=== PATIENT | male | born 1955 ===

== ENCOUNTER → 2020-10-30 08:56 | Outpatient (CLI) | payer MEDICARE, BC, SELFPAY ==
--- NOTE | ~2020-10-30 | XR_ITS ---
EXAMINATION: XR hip LT 2V w AP pelvis INDICATION: Left hip pain TECHNIQUE: AP view the pelvis and two views of each hip are obtained. COMPARISON: 02/17/2010 FINDINGS: Bone alignment is normal. There is no fracture. There is mild osteoarthritis. The soft tiss ues are unremarkable. Mild to moderate lumbar spondylosis is noted. IMPRESSION: 1. Mild osteoarthritis. Reviewed, dictated and finalized at location B. IMPRESSION: 1. Mild osteoarthritis.
--- NOTE | ~2020-10-30 | XR_ITS ---
EXAMINATION: XR ankle LT min 3V, XR foot LT min 3V DATE: 10/30/2020 09:56 INDICATION: Left foot and ankle pain. TECHNIQUE: 1. Anteroposterior, mortise, additional oblique and lateral view of the left ankle were obtained. 2. Dorsoplantar, two oblique and lateral views of the left foot were obtained. COMPARISON: None. FINDINGS: Alignment of the foot and ankle is normal. No fracture or osteochondral lesion. Mild osteoarthritis a t the left ankle, first metatarsophalangeal and a few interphalangeal joints. Subarticular cystic alma nges seen at the central head of the first metatarsal. Mild hypertrophic change along the anterior ma rgin of the tibial plafond. No ankle joint effusion. Small plantar calcaneal spur. Mild soft tissue s welling about the left ankle and over the dorsum of the midfoot. IMPRESSION: 1. Mild polyarticular osteoarthritis at the left ankle, first metatarsophalangeal and a few interphal angeal joints. No acute osseous abnormality. Reviewed, dictated and finalized at location A. IMPRESSION: 1. Mild polyarticular osteoarthritis at the left ankle, first metatarsophalange al and a few interphalangeal joints. No acute osseous abnormality.
== END ==
PROVIDERS: Visit Provider Nurse Practitioner Adult Health
DX: M25.552 Pain in left hip (principal); M79.673 Pain in unspecified foot; M25.572 Pain in left ankle and joints of left foot; M16.12 Unilateral primary osteoarthritis, left hip; M19.072 Primary osteoarthritis, left ankle and foot
CPT/HCPCS: 73502; 73610; 73630

== ENCOUNTER 2022-03-03 09:37 | Outpatient (CLI) | payer MEDICARE, SELFPAY ==
--- NOTE | ~2022-03-03 | XR_ITS ---
EXAMINATION: XR hip BI wo pelvis DATE: 03/03/2022 10:30 INDICATION: Bilateral hip pain. TECHNIQUE: 2 views of right hip and 2 views of left hip were obtained. COMPARISON: Pelvis and hip radiographs 10/30/2020 FINDINGS: Bone alignment is normal. No fracture. There is mild osteoarthritis of the hips. Osteitis p ubis is noted. IMPRESSION: 1. Mild osteoarthritis of the hips. Reviewed, dictated and finalized at location A.
== END 2022-03-03 09:38 | disposition home or self-care (01) ==
PROVIDERS: Visit Provider Physical Medicine & Rehabilitation
DX: M16.11 Unilateral primary osteoarthritis, right hip (principal)
CPT/HCPCS: 73521

== ENCOUNTER 2025-03-26 09:17 | Emergency (ER) | payer MEDICARE, SELFPAY ==
--- OUTSIDE RECORDS SUMMARY | 2024-11-28 07:30 | XMS_ITS ---
Author Organization [facility] Address [address] [place] [address] Care Team Providers Care Pick Remover Name Role Phone Nathaniel Chapman Unavailable [phone] Favio Baker [phone] REASON FOR VISIT inflammation in right foot Encounters Encounter Location Date Provider Diagnosis [facility]-[address] [address] 11/28/2024 Favio Baker Plan Of Treatment No Information Progress Notes * Santos RAHMAN MDOB:[birth year] (70 yo M)Acc No.[id number]:11/28/2024 Progress Notes Patient: Ester ROMERO Santos Hernandez Provider: ABDIFATAH Robertson :1955 A ge:69 Y S ex:Male Date:11/28/2024 Address:[address] [place], [place] [id number] Subjective: * Chief Complaints: * 1 . Inflammation in right foot. * Medical History: Objective: * Vitals: Assessment: Plan: * Treatment: * * Electronic signature of ABDIFATAH Workman on 03/26/2025 at 10:15 AM CONFERENCE SERVICES MANAGER Sign off status: Pending * Provider: ABDIFATAH Robertson Date: 0 11/28/2024 Generated for Mercedez to/Ivan/eTransmitting on: 05/26/2024 10:15 AM CONFERENCE SERVICES MANAGER
--- OUTSIDE RECORDS SUMMARY | 2024-12-05 06:45 | XMS_ITS ---
Author Organization [facility] Address [address] [place] [address] Care Team Providers Care Bezel Cutter Name Role Phone AriMj carrilloden Unavailable [phone] Favio Baker Unavailable [phone] REASON FOR VISIT inflammation in right foot Encounters Encounter Location Date Provider Diagnosis [facility]-[address] [address] 12/05/2024 Favio Baker Assessments Encounter Date Diagnosis (ICD Code) Assessment Notes Treatment Notes Treatment Clinical Notes Section Notes 12/05/2024 Other Notes: Significant time was spent due to complex decision-making as a result of the patient's complicated pain issues. The plan is as follows: Patient will continue exercise therapy regimen. Assessment is unchanged from 04/13/23 except as denoted below. Plan Of Treatment Treatment Notes Assessment Notes Other Notes: Significant time was spent due to complex decision-making as a result of the patient's complicated pain issues. The plan is as follows: Patient will continue exercise therapy regimen. Progress Notes * Santos FREY MDOB:[birth year] (70 yo M)Acc No.[id number]:12/05/2024 Progress Notes Patient: Santos STILL Provider: ABDIFATAH Robertson :1955 A ge:69 Y S ex:Male Date:12/05/2024 Address:[address] [place] [address] [facility] Subjective: * Chief Complaints: * 1 . Inflammation in right foot. * HPI: C omplaints: On a scale of 1-10 how would you rate your pain today? Patient reports pain rated at a level Where is your pain today and how long has the pain been present? Patient reports pain located How would you describe your pain, is it aching, stabbing, dull, sharp or burning? Patient reports Is there anything that you do that makes the pain better? Patient reports the pain decreases with Is there anything that you do that makes the pain worse? Patient reports the pain increases with What daily activities does your pain make more difficult? Patient reports How many hours of sleep a night would you say you're getting? Patient reports obtaining hours of sleep per night. Is the pain causing you to wake up at night, if so how often? Patient reports What medications are you currently taking to manage the pain and how long have you been taking these medications? Patient reports taking Have you had any injections recently and if you have, how much relief have you gotten from those? Patient reports Have you had any recent falls? Patient reports The pain disability index score at today's visit is: ____. * Medical History: Objective: * Vitals: * Examination: G eneral Examination: P hysical exam is unchanged from 04/13/23 except as denoted below. GENERAL APPEARANCE: well developed, well nourished, alert, and cooperative; in no apparent distress HEAD: normocephalic, atraumatic EYES: sclera non-icteric, extra ocular eye movements intact CHEST: respiratory rate normal, no signs of respiratory distress SKIN: no suspicious lesions, no rashes, no edema NEURO: Normal speech; walking unassisted without a cane or a walker. Assessment: * Assessment: Assessment is unchanged from 04/13/23 except as denoted below. Plan: * Treatment: * * Electronic signature of ABDIFATAH Workman on 03/26/2025 at 10:15 AM LEGAL RECEPTIONIST Sign off status: Pending * Provider: ABDIFATAH Robertson Date: 0 12/05/2024 Generated for Mercedez to/Ivan/Mónica on: 05/26/2024 10:15 AM LEGAL RECEPTIONIST History and Physical Notes * Examination Category Sub-Category Detail Notes Category Not es General Examination Physical exam is unchanged from 04/13/23 except as denoted below. GENERAL APPEARANCE: well developed, well nourished, alert, and cooperative; in no apparent distress HEAD: normocephalic, atraumatic EYES: sclera non-icteric, extra ocular eye movements intact CHEST: respiratory rate normal, no signs of respiratory distress SKIN: no suspicious lesions, no rashes, no edema NEURO: Normal speech; walking unassisted without a cane or a walker
--- OUTSIDE RECORDS SUMMARY | 2024-12-21 02:15 | XMS_ITS ---
Author Organization [facility] Address [address] [place] [address] Care Team Providers Care Software Trainer Name Role Phone AriNathaniel carrillo Unavailable [phone] Favio Baker Unavailable [phone] REASON FOR VISIT inflammation in right foot Medications Medication SIG (Take, Route, Frequency, Duration) Notes Start Date End Date Status Medrol 4 MG as directed Orally 6 tabs day 1, 5 tabs day 2, 4 tabs day 3, 3 tabs day 4, 2 tabs day 5, 1 tab day 6 for 6 days 12/21/2024 Active traMADol HCl 50 MG 1 tablet as needed O rally three times a day (tid) as needed (prn) for 10 days 04/13/2023 Active Cyclobenzaprine HCl 10 MG 1 tablet at be dtime as needed Orally Once a day for 30 day(s) Active Encounters Encounter Location Date Provider Diagnosis [facility]-[address] [address] 12/21/2024 Favio Baker Foot pain, right M79.671 and Plantar fascial fibromatosis M72.2 Assessments Encounter Date Diagnosis (ICD Code) Assessment Notes Treatment Notes Treatment Clinical Notes Section Notes 12/21/2024 Foot pain, right (ICD-10 - M79.671) Assessment is unchanged from 04/13/23 except as denoted below. 12/21/2024 Plantar fascial fibromatosis (ICD-10 - M72.2) Assessment is unchanged from 04/13/23 except as denoted below. 12/21/2024 Other Notes: Significant time was spent due to complex decision-making as a result of the patient's complicated pain issues. The plan is as follows: Patient will continue exercise therapy regimen. There is strong suspicion for plantar fasciitis as the cause of the pt's symptoms. Reviewed with the pt conservative measures to treat PF (calf stretches, rolling foot over a hard ball, wearing proper fitting shoes, etc.) Recommended a foot xray to pt to assess for acute bony pathology, but pt declines. Will prescribe a Medrol Dose Pack for the patient's acute pain and inflammation. Discussed potential medication side effects/risks with the patient. Advised patient to not take any NSAIDs while taking Medrol Dose Pack. The patient expresses understanding. The patient denies a history of kidney or liver disease. Will refer pt to [facility] for further evaluation. Pt elects to FU PRN at this time. We will not add or change any other medications at this time as the patient is currently tolerating all medications with no significant side effects. Advised pt to contact clinic if they develop any new/worsening symptoms or pain The total encounter time for today's visit was 30 minutes which was spent on preparation for the visit, e.g. chart review, and in the activities documented in this note. Please refer back to the HPI and physical exam sections of this note for further details regarding this encounter. Assessment is unchanged from 04/13/23 except as denoted below. Plan Of Treatment Medication Medication Name Sig Start Date Stop Date Notes Medrol 4 MG as directed Orally 6 tabs day 1, 5 tabs day 2, 4 tabs day 3, 3 tabs day 4, 2 tabs day 5, 1 tab day 6 for 6 days 12/21/2024 Treatment Notes Assessment Notes Other Notes: Significant time was spent due to complex decision-making as a result of the patient's complicated pain issues. The plan is as follows: Patient will continue exercise therapy regimen. There is strong suspicion for plantar fasciitis as the cause of the pt's symptoms. Reviewed with the pt conservative measures to treat PF (calf stretches, rolling foot over a hard ball, wearing proper fitting shoes, etc.) Recommended a foot xray to pt to assess for acute bony pathology, but pt declines. Will prescribe a Medrol Dose Pack for the patient's acute pain and inflammation. Discussed potential medication side effects/risks with the patient. Advised patient to not take any NSAIDs while taking Medrol Dose Pack. The patient expresses understanding. The patient denies a history of kidney or liver disease. Will refer pt to [facility] for further evaluation. Pt elects to FU PRN at this time. We will not add or change any other medications at this time as the patient is currently tolerating all medications with no significant side effects. Advised pt to contact clinic if they develop any new/worsening symptoms or pain The total encounter time for today's visit was 30 minutes which was spent on preparation for the visit, e.g. chart review, and in the activities documented in this note. Please refer back to the HPI and physical exam sections of this note for further details regarding this encounter. Progress Notes * Santos FREY MDOB:[birth year] (70 yo M)Acc No.[id number]:12/21/2024 Progress Notes Patient: Santos STILL Provider: ABDIFATAH Robertson :1955 A ge:69 Y S ex:Male Date:12/21/2024 Address:[address] [place], [place] [id number] Subjective: * Chief Complaints: * 1 . Inflammation in right foot. * HPI: C omplaints: On a scale of 1-10 how would you rate your pain today? Patient reports pain rated at a level of 4 with shoes on, barefoot is a 10 Where is your pain today and how long has the pain been present? Patient reports pain located in right foot, ball of foot and in fascia/arch; pain flared up about 1 month ago; pt notes the pain was first noticed upon waking up 1 day; The pt denies any recent trauma/injury or skin changes pt notes this pain has been intermittent for years from a prior injury to his foot; pt states he recently had to wear old shoes as his current shoes were too worn down; pt recently just bought a new pair of shoes How would you describe your pain, is it aching, stabbing, dull, sharp or burning? Patient reports pain is sharp Is there anything that you do that makes the pain better? Patient reports the pain decreases with applying ice Is there anything that you do that makes the pain worse? Patient reports the pain increases with standing/walking What daily activities does your pain make more difficult? Patient reports taking his dog for a walk How many hours of sleep a night would you say you're getting? Patient reports obtaining about 6 hours of sleep per night. Is the pain causing you to wake up at night, if so how often? Patient reports no sleep disturbances at night due to the pain What medications are you currently taking to manage the pain and how long have you been taking these medications? Patient reports taking ibuprofen prn Have you had any injections recently and if you have, how much relief have you gotten from those? Patient reports on 04/15/23 L SI 100% relief Have you had any recent falls? Patient reports no recent falls in the last month The pain disability index score at today's visit is: 35 pt denies additional complaints at this time. * Medical History: * Medications: T aking Cyclobenzaprine HCl 10 MG Tablet 1 tablet at bedtime as needed Orally Once a day , Taking traMADol HCl 50 MG Tablet 1 tablet as needed Orally three times a day (tid) as needed (prn) Objective: * Vitals: * Examination: G eneral [...] unassisted without a cane or a walker Right foot: -No erythema, bruising, swelling, rashes, open wounds, streaking or other acute skin changes -Full ROM of ankle and all toes in all planes -Mild tenderness on medial aspect of arch of foot; No bony tenderness; No crepitus, induration, fluctuance or step offs palpated -Peripheral pulses 2+ -DNVI -Remainder of exam unremarkable. Assessment: * Assessment: 1. F oot pain, right - M79.671 (Primary) 2 . P lantar fascial fibromatosis - M72.2 Assessment is unchanged from 04/13/23 except as denoted below. Plan: * Treatment: * * Electronic signature of ABDIFATAH Workman on 03/26/2025 at 10:14 AM JUVENILE COUNSELOR Sign off status: Pending * Provider: ABDIFATAH Robertson Date: 0 12/21/2024 Generated for Mercedez to/Ivan/eTransmitting on: 1 05/26/2024 10:14 AM JUVENILE COUNSELOR History and Physical Notes * Examination Category [...] unassisted without a cane or a walker Right foot: -No erythema, bruising, swelling, rashes, open wounds, streaking or other acute skin changes -Full ROM of ankle and all toes in all planes -Mild tenderness on medial aspect of arch of foot; No bony tenderness; No crepitus, induration, fluctuance or step offs palpated -Peripheral pulses 2+ -DNVI -Remainder of exam unremarkable
[2025-03-26] VITALS (8 sets, daily range): BP systolic 77–134; BP diastolic 64–79; PULSE 69–91; RESP 14–25; TEMP 37.1; O2SAT 96–100
--- NOTE | ~2025-03-26 | XR_ITS ---
EXAMINATION: XR chest 2V DATE: 03/26/2025 09:58 INDICATION: Left-sided chest pain and shortness of breath TECHNIQUE: PA and lateral views of the chest were obtained. COMPARISON: Chest radiograph dated 08/06/2005 FINDINGS: There is eventration along the anterior right hemidiaphragm. Lungs are clear with no focal airspace opacities, pulmonary edema, pleural effusion or pneumothorax. The cardiomediastinal silhouette is normal. Mild thoracic spondylosis. IMPRESSION: 1. No acute cardiopulmonary disease. Reviewed, dictated and finalized at location A. INSPECTOR
--- NOTE | ~2025-03-26 | CT_ITS ---
EXAMINATION: CTA chest PE protocol DATE: 03/26/2025 11:08 INDICATION: Shortness of breath and left-sided chest pain. Elevated d-dimer. TECHNIQUE: Computed tomography (CT) pulmonary angiogram of the chest was performed with 100 mL Omnipaque-350 intravenous contrast. Additional 3D reconstructions utilizing coronal maximum intensity projection (MIP) were performed. Automated exposure control and iterative reconstruction technique were employed. The dose-length product was 525.78 mGy-cm. COMPARISON: None FINDINGS: No pulmonary embolism. Mild emphysema. Minimal dependent atelectasis in the right upper and lower lobes. Additional small band of discoid atelectasis at the anterobasilar right lower lobe. No pneumonia, pulmonary edema, pleural effusion or pneumothorax. Heart size is normal. Atherosclerotic coronary artery calcifications. No pericardial effusion. Thoracic aorta is normal in caliber with no dissection. Small calcified right hilar and mediastinal lymph nodes consistent with old granulomatous disease. No pathologically enlarged thoracic lymphadenopathy. 1.3 cm low-attenuation hepatic cyst. Multiple splenic calcifications no calcified periportal lymph nodes consistent with old granulomatous disease. Incompletely visualized at least 3.1 cm exophytic cyst at the upper pole the right kidney. Mild to moderate thoracic spondylosis with minimal chronic appearing anterior wedging of several mid to lower thoracic vertebral bodies. IMPRESSION: 1. No pulmonary embolism or other acute cardiopulmonary disease. Reviewed, dictated and finalized at location A. OF HUMAN RESOURCES
--- NOTE | 2025-03-26 09:19 | ECG_ITS ---
Test Date: 2025-03-26 09:34:04 Measurements Intervals Rowdy Rate: 85 P: 51 WA: 177 QRS: 52 QRSD: 157 T: 255 QT: 396 QTc: 471 Interpretive Statements SINUS RHYTHM LEFT BUNDLE BRANCH BLOCK [120+ ms QRS DURATION, 80+ ms Q/S IN V1/V2, 85+ ms R IN I/aVL/V5/V6] ABNORMAL ECG No previous ECG available for comparison Electronically Signed On 03-26-2025 13:53:23 PSYCHOLOGIST ENGINEERING by Genaro Bain M.D.
[2025-03-26] MEDS: ASPIRIN 81 MG CHEWABLE TABLET 324 MG PO (09:30)
[2025-03-26 09:46] LABS: Hematocrit 41.9 % (42.0-52.0); Hemoglobin 14.2 g/dL (14.0-18.0); Immature Granulocyte Percent A 0.4 % (0-0.5); Lymphocytes Absolute Auto 0.68 K/mm3 (0.9-3.2); Mean Corpuscular HGB Conc 33.9 g/dl (32-36); Mean Corpuscular Hemoglobin 31.2 pg (26-34); Mean Corpuscular Volume 92.1 fl (80-100); Nucleated Red Blood Cells Absolute Auto 0.000 K/mm3 (0.0-0.012); Nucleated Red Blood Cells Perc 0.0 % (0.0-0.2); Platelet Count Result 204 k/mm3 (150-375); Red Blood Count 4.55 M/mm3 (4.6-6.20); White Blood Count 4.8 K/mm3 (4.5-10.0)
--- NOTE | 2025-03-26 09:54 | ED_ITS ---
HPI - General Adult General Chief complaint: Chest Pain Stated complaint: chest pain lightheaded sob Time Seen by Provider: 03/26/25 09:35 History of Present Illness HPI narrative: 70-year-old male presenting to the emergency department for evaluation for left-sided chest wall pain. Patient states symptoms have been ongoing for the last month. Patient states the chest pains do tend to happen with exertion breath and at that rest. Patient reports that he has been decreasing both his beer and cannabis consumption. Patient reports he has refrained from cannabis for the last 3 weeks. Patient states his last stress test was many years ago. Patient denies any prior history of NE. patient describes the pain as a mild pain associated the left chest that does not radiate to his back arm or neck. Related Data Allergies Allergy/AdvReac Type Severity Reaction Status Date / Time nitroglycerin AdvReac Intermediate Hypotension Verified 03/26/25 11:37 Review of Systems 2 Review of Systems: All systems reviewed & are unremarkable except as noted in HPI and below PMFSH Family History Family History Father Family history of glaucoma Family history of cardiovascular disease Family history of dementia Family history of hearing loss Mother Family history of seizure disorder Social History Social History Smoking status: Current every day smoker Alcohol intake: current Exam 2 Narrative: APPEARANCE: Well appearing, no pain, no distress, well-nourished. HEAD: normocephalic, atraumatic. EYES: PERRLA/EOMI, conjunctivae clear. NOSE: Normal no drainage EARS:TMS clear with good light reflex. THROAT: Pharynx clear, no exudate. NECK: Supple. No adenopathy, no masses. RESPIRATORY: Airway patent, respirations nonlabored. Clear to auscultation bilaterally, no rales, rhonchi, wheezing. CARDIOVASCULAR: Regular rate and rhythm without murmurs rubs or gallops. ABDOMINAL: Soft, nontender, nondistended, normal bowel sounds MUSCULOSKELETAL: Moves all extremities. Strength/ROM intact, No edema, No calf tenderness. NEURO: Alert. Cranial nerves II through XII intact. Good gait. Good coordination SKIN: Warm, dry. Normal Color Course Vital Signs Vital signs: Vital Signs Pulse Rate 91 03/26/25 09:20 Respiratory Rate 16 03/26/25 09:20 Blood Pressure 134/79 03/26/25 09:20 Pulse Oximetry 100 03/26/25 09:20 Oxygen Delivery Room Air 03/26/25 09:20 Temperature 98.7 F 03/26/25 10:23 Pulse Rate 79 03/26/25 13:50 Respiratory Rate 16 03/26/25 13:50 Blood Pressure 131/79 03/26/25 13:50 Pulse Oximetry 97 03/26/25 13:50 Oxygen Delivery Room Air 03/26/25 09:37 Medical Decision Making MDM Narrative Medical decision making narrative: 70-year-old male present to the emergency department for evaluation for left- sided chest pain. Patient is currently afebrile with no leukocytosis hemoglobin of 14.2. INR of 1.0. Patient did have an elevated D-dimer and CT was negative for pulmonary embolism. Patient had negative troponins and negative serial EKGs. Patient family were updated on results of the workup. Low concern for ACS. Patient's symptoms could be secondary to inflammatory process such as pleurisy versus costochondritis. Patient was encouraged close follow-up with his primary care physician for additional outpatient cardiac testing. Patient was also encouraged to return to the emergency department feeling worsening symptoms. Differential Diagnosis Differential Diagnosis: Pneumonia, pulmonary embolism, ACS, pneumothorax, pleurisy, costochondritis, diverticulitis, colitis, gastritis, esophagitis Vital Signs Vital Signs: Vital Signs Pulse Rate 91 03/26/25 09:20 Respiratory Rate 16 03/26/25 09:20 Blood Pressure 134/79 03/26/25 09:20 Pulse Oximetry 100 03/26/25 09:20 Oxygen Delivery Room Air 03/26/25 09:20 Temperature 98.7 F 03/26/25 10:23 Pulse Rate 79 03/26/25 13:50 Respiratory Rate 16 03/26/25 13:50 Blood Pressure 131/79 03/26/25 13:50 Pulse Oximetry 97 03/26/25 13:50 Oxygen Delivery Room Air 03/26/25 09:37 Lab Data Lab results reviewed: Yes I reviewed the patient's lab results. 03/26/25 09:31 03/26/25 09:31 Labs: Lab Results 03/26/25 03/26/25 Range/Units 09:31 12:08 WBC 4.8 (4.5-10.0) K/mm3 RBC 4.55 L (4.6-6.20) M/mm3 Hgb 14.2 (14.0-18.0) g/dL Hct 41.9 L (42.0-52.0) % MCV 92.1 (80-100) fl MCH 31.2 (26-34) pg MCHC 33.9 (32-36) g/dl RDW 12.8 (11.5-14.5) % Plt Count 204 (150-375) k/mm3 MPV 8.8 (7.4-10.4) fl Immature Gran % (Auto) 0.4 (0-0.5) % Neut % (Auto) 69.1 (45.5-73.1) % Lymph % (Auto) 14.3 L (18.3-44.2) % [place] % (Auto) 13.9 H (2.6-8.5) % Eos % (Auto) 1.9 (0-4.4) % Baso % (Auto) 0.4 (0.2-1.2) % Lymph # (Auto) 0.68 L (0.9-3.2) K/mm3 [place] # (Auto) 0.7 H (0.1-0.6) K/mm3 Eos # (Auto) 0.1 (0-0.3) K/mm3 Baso # (Auto) 0.0 (0.0-0.1) K/mm3 Abs Immat Gran (auto) 0.02 (0.00-0.031) K/mm3 Absolute Neuts (auto) 3.3 (1.3-6.7) K/mm3 Absolute Nucleated RBC 0.000 (0.0-0.012) K/mm3 Nucleated RBC % 0.0 (0.0-0.2) % PT 13.6 (11.1-14.7) Seconds INR 1.0 APTT 30.9 (22.3-36.8) Seconds D-Dimer 0.71 H (<0.48) ug/mL Sodium 136 L (137-145) mmol/L Potassium 4.0 (3.4-5.0) mmol/L Chloride 107 (98-107) mmol/L Carbon Dioxide 22 (22-30) mmol/L Anion Gap 7 (4-12) mmol/L BUN 16 (9-20) mg/dL Creatinine 0.94 (0.7-1.3) mg/dL Estim Creat Clear Calc 79 ml/min Estimated GFR > 60 (59 - ) Glucose 110 (65-110) mg/dL Calcium 9.4 (8.4-10.2) mg/dL Total Bilirubin 1.1 (0.2-1.3) mg/dL AST 31 (17-59) U/L ALT 29 (6-50) U/L Alkaline Phosphatase 98 (38-126) U/L Troponin I < 0.012 < 0.012 (0.000-0.034) ng/mL Total Protein 8.0 (6.3-8.2) g/dL Albumin 4.5 (3.5-5.1) g/dL Lipase 70 (23-300) U/L Imaging Data Radiologist's impression: Impressions Chest X-Ray 03/26/25 10:01 IMPRESSION: 1. No acute cardiopulmonary disease. Chest CTA 03/26/25 11:32 IMPRESSION: 1. No pulmonary embolism or other acute cardiopulmonary disease. Discharge Plan Discharge Clinical Impression: Chest pain Patient Disposition: Home Condition: Stable Instructions: Antibiotic Form, Chest Pain (ED) Additional Instructions: Have close follow-up with your primary care physician for additional outpatient cardiac testing. If you have any worsening symptoms then please call or return to the emergency department. Patient Language: Mongolian Prescriptions: No Action celecoxib 200 mg capsule 200 mg PO DAILY Qty: 30 0RF Follow-up/Referrals: UNKNOWN,DOCTOR [Primary Care Provider] Quality HEART score for chest pain patients History: slightly suspicious ECG: normal Age: > or = to 65 years Risk factors: 1 or 2 risk factors Troponin: < or = to 1x normal limit Heart score: 3
[2025-03-26 09:57] LABS: Alanine Aminotransferase 29 U/L (6-50); Albumin Level 4.5 g/dL (3.5-5.1); Alkaline Phosphatase 98 U/L (38-126); Anion Gap 7 mmol/L (4-12); Aspartate Amino Transferase 31 U/L (17-59); Bilirubin,Total 1.1 mg/dL (0.2-1.3); Blood Urea Nitrogen 16 mg/dL (9-20); Calcium 9.4 mg/dL (8.4-10.2); Carbon Dioxide 22 mmol/L (22-30); Chloride 107 mmol/L (98-107); Estimated CRCL calculation 79 ml/min; Estimated Glomerular Filt Rate > 60; Glucose 110 mg/dL (65-110); INR 1.0; Lipase 70 U/L (23-300); Potassium 4.0 mmol/L (3.4-5.0); Prothrombin Time 13.6 Seconds (11.1-14.7); Sodium 136 mmol/L (137-145); Total Protein 8.0 g/dL (6.3-8.2)
[2025-03-26 09:58] LABS: Partial Thromboplastin Time 30.9 Seconds (22.3-36.8)
[2025-03-26 10:09] LABS: Troponin I < 0.012 ng/mL (0.000-0.034)
--- OUTSIDE RECORDS SUMMARY | 2025-03-26 10:15 | XMS_ITS | Patient Health Record ---
Author Organization [facility] Address [address] [place] [address] Care Team Providers Care Nursing Home Administrator Name Role Phone Nathaniel Chapman Unavailable [phone] Favio Baker Unavailable [phone] Bradly Messina Unavailable [phone] Allergies No Known Allergies Reason For Referral Reason Plantar Fasciitis Referral Organization [facility] Referring Provider First Name Nathaniel Referring Provider Last Name Ari Referring Provider Speciality Pain Medic ine Referred Provider GIFTY MEJÍA Referred Provider Specialty Podiatry Referral Priority Routine Medications Medication SIG (Take, Route, Frequency, Duration) [...] Once a day for 30 day(s) Active Social History Tobacco Use: Social History Observation Description Date Details (start date - stop date) Former Smoker NA - NA Alcohol Screening Question Answer Notes Alcoholic drink in the past year Yes Frequency Two to three times per week (3 p oints) Points 3 Interpretation Negative Screening Question Answer Notes Are you a current smoker? former smoker How long has it been since you last smoked? 5-10 years Problems Problem Type SNOMED Code ICD Code Onset Dates Problem Status W/U Status Risk Notes Problem Lumbar spondylosis (971742555) Lumbar spondylosis (M47.816) Active confirmed Problem Solitary sacroiliitis (512236310) Sacroiliitis, not elsewhere classified (M46.1) Active confirmed Problem Degeneration of lumbosacral intervertebral disc (22877464) Other intervertebral disc degeneration, lumbosacral region (M51.37) Active confirmed Problem Lumbosacral spondylosis without myelopathy (disorder) (35733725) Spondylosis without myelopathy or radiculopathy, lumbosacral region (M47.817) Active confirmed Problem Ankylosis of joint of pelvis and/or hip (642840825) Ankylosis, 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 confirmed Problem Osteoarthritis of left hip joint (921964775418923) Localized osteoarthrosis of left hip (M16.12) Active confirmed Encounters Encounter Location Date Provider Diagnosis [facility] [address] 12/21/2024 Favio Baker Foot pain, right M79.671 and Plantar fascial fibromatosis M72.2 [facility] [address] [place] [address] 02/11/2025 Bradly Messina Assessments Encounter Date Diagnosis (ICD Code) Assessment Notes Treatment Notes Treatment Clinical Notes Section Notes 12/21/2024 Foot pain, right (ICD-10 - M79.671) Assessment is unchanged from 04/13/23 except as denoted below. 12/21/2024 Plantar fascial fibromatosis (ICD-10 - M72.2) Assessment is unchanged from 04/13/23 except as denoted below. 12/05/2024 Other Notes: Significant time was spent [...] or liver disease. Will refer pt to [facility] for further evaluation. Pt [...] except as denoted below. Plan Of Treatment Pending Test Test Name Order Date Xray Hip Complete Left 03/03/2022 Xray Hip Complete Right 03/03/2022 Insurance Providers Payer Name Payer Address Payer Phone Subscriber Number Group Number Insured Name Patient Relationship to Insured Coverage Start Date Coverage End Date [facility] [address] [address] [place] [address] [id number] Santos Rahman Self - patient is the insured Medical (General) History Surgical History Surgery Date(Month/Year) Tonsillectomy 1960
[2025-03-26] MEDS: NITROGLYCERIN SL 0.4 MG TABLET SUBLINGUAL (10:19)
[2025-03-26] MEDS: LACTATED RINGERS 1,000 ML 999 ML IV CONT (10:30)
--- NOTE | 2025-03-26 11:40 | PC.NURSE ---
Pts fluids hung higher to assist with better flow
--- NOTE | 2025-03-26 12:15 | ECG_ITS ---
Test Date: 2025-03-26 12:07:29 Measurements Intervals [place] Rate: 74 P: -43 UT: 167 QRS: -13 QRSD: 154 T: 66 QT: 434 QTc: 482 Interpretive Statements SINUS RHYTHM LEFT BUNDLE BRANCH BLOCK [120+ ms QRS DURATION, 80+ ms Q/S IN V1/V2, 85+ ms R IN I/aVL/V5/V6] ABNORMAL ECG Compared to ECG 03/26/2025 09:34:04 No significant changes Electronically Signed On 03-26-2025 13:57:26 AUDIO VISUAL SECRETARY by Genaro Bain M.D.
[2025-03-26 12:38] LABS: Troponin I < 0.012 ng/mL (0.000-0.034)
== END 2025-03-26 13:52 | disposition home or self-care (01) ==
PROVIDERS: Emergency Provider Emergency Medicine
DX: R07.89 Other chest pain (principal); F17.200 Nicotine dependence, unspecified, uncomplicated; I44.7 Left bundle-branch block, unspecified
CPT/HCPCS: 36415; 71046; 71275; 80053; 83690; 84484; 85025; 85380; 85610; 85730; 93005; 96360; 99284; A9270; J7120; Q9967